=== PATIENT | female | born 1975 | race Caucasian/White ===

== ENCOUNTER → 2019-09-21 11:21 | Outpatient (CLI) | payer BC, SELFPAY ==
--- NOTE | ~2019-09-21 | MM_ITS ---
EXAMINATION: MM screening [facility] BI w janak HISTORY: Screening mammogram TECHNIQUE: Craniocaudal and mediolateral oblique 3-D tomosynthesis images were obtained and synthetic 2-D images were generated. CAD analysis was submitted and interpreted. COMPARISON: 09/15/2018, 09/05/2018, 11/11/2012 BREAST PARENCHYMAL COMPOSITION: The breasts are heterogeneously dense, which may obscure small masses . FINDINGS: There is no evidence of suspicious mass, calcification, or architectural distortion to sugg est malignancy in either breast. There has been no suspicious interval change. IMPRESSION: 1. No mammographic evidence of malignancy. 2. Recommend routine screening mammography in one year. BI-RADS Category 1: Negative Reviewed, dictated and finalized at location A. FRAME [employer]PER
== END ==
PROVIDERS: Visit Provider Nurse Practitioner Family
DX: Z12.31 Encounter for screening mammogram for malignant neoplasm of breast (principal)
CPT/HCPCS: 77063; 77067

== ENCOUNTER 2020-03-07 09:34 | Emergency (ER) | payer BC, SELFPAY ==
[2020-03-07 09:46] VITALS: BP 119/78; PULSE 73; RESP 16; TEMP 37.3; O2SAT 100
--- NOTE | 2020-03-07 10:04 | ED.GENADULT ---
HPI - General Adult General Chief complaint: Extremity Injury, Lower Stated complaint: Leg pain Time Seen by Provider: 03/07/20 09:50 Source: patient and RN notes reviewed Mode of arrival: ambulatory Limitations: no limitations History of Present Illness HPI narrative: 44-year-old female presents with complaints of left medial-posterior calf pain for the past 4 days. Aspirin (ES 500mg-2 tablets), last 03/06/20 with some relief. Elodia says she came in today to rule out a blood clot as instructed per her nurse friend. Can not recall any injuries. Say she rolled her ankle on February 03, 2020 otherwise denies any known injuries to LT leg. Denies radiation of pain. No numbness or tingling or bleeding. No swelling. No loss of mobility. Exacerbating factor consist of bearing weight to leg and palpation. Denies recent travel or long car rides. No history of DVT or PE. No chest pain or dyspnea. LMP 03/05/20l. Remains active. The patient reports she have not been diagnosed with COVID-19. The patient reports she is not waiting for the results of a COVID-19 lab test. The patient reports she do not have fever, chills, weakness, or fatigue. The patient reports she do not have a new or worsening cough or shortness of breath. Denies chest pain. The patient reports she do not have any rhinorrhea, congestion, sore throat, nausea, vomiting, abdominal pain, and diarrhea. Tolerating po intake well. Denies recent traveling. Denies concerns for COVID-19 or exposures been home with limited outdoor exposure except for essential household needs, work, and return home. At this time, patient is not suspected of having COVID-19. Some parts of this dictation were generated by voice recognition software and may contain typographical and/or grammatical inaccuracies. Related Data Home Medications Medication Instructions Recorded Confirmed levonorgestrel-ethinyl estrad 1 tablet PO DAILY 03/07/20 03/07/20 [Vienva] Allergies Allergy/AdvReac Type Severity Reaction Status Date / Time No Known Allergies Allergy Verified 03/07/20 09:50 Review of Systems Review of Systems: Narrative: CONSTITUTIONAL: Denies fever, chills, sweats. EYES: Denies visual changes, redness, discharge. ENT: Denies rhinorrhea, congestion, sore throat, otalgia. CARDIOVASCULAR: Denies chest pain, palpitations, edema. RESPIRATORY: Denies dyspnea, wheezing, cough. GASTROINTESTINAL: Denies abdominal pain, nausea, vomiting, diarrhea. GENITOURINARY: Denies dysuria, hematuria, abnormal discharge. SKIN: Denies rash or itching. MUSCULOSKELETAL: Denies acute back pain, joint pain, or myalgia. Complains of LT medial-posterior calf pain. NEUROLOGIC: Denies numbness or focal weakness. PSYCHIATRIC: Denies anxiety or depression. All other systems reviewed are negative, except as documented in HPI and below. [facility] Past Medical History Medical History (Updated 03/07/20 @ 14:34 by DAPHNE Mosely) Breast lump delivery delivered Surgical History Surgical History (Updated 03/07/20 @ 11:03 by DAPHNE Mosley) H/O section History of lumpectomy of left breast Family History Family History (Updated 03/07/20 @ 11:04 by DAPHNE Mosley) Father Acute myocardial infarction Mother Alive and well Social History Social History (Updated 03/07/20 @ 11:04 by DAPHNE Mosley) Smoking status: Never smoker Tobacco type: cigarettes Second hand tobacco smoke exposure: No Alcohol intake: current Substance use: never Living arrangements: with family Occupation/Education: occupation Gender identity (if verbalized by the patient): Female Sexual Orientation (if Verbalized by the Patient): Straight or Heterosexual Comments At time of signature, agree with nurse past medical, surgical, social, and family history. There is no relevant family history pertinent to the presenting complaint. Exam Narrative:
== END 2020-03-07 10:28 | disposition home or self-care (01) ==
PROVIDERS: Emergency Provider Nurse Practitioner Family
DX: S86.112A Strain of other muscle(s) and tendon(s) of posterior muscle group at lower leg level, left leg, initial encounter (principal); X58.XXXA Exposure to other specified factors, initial encounter
CPT/HCPCS: 99212; G0463

== ENCOUNTER → 2020-11-26 08:22 | Outpatient (CLI) | payer BC, SELFPAY ==
--- NOTE | ~2020-11-26 | US_ITS ---
EXAMINATION: US pelvic complete DATE: 11/26/2020 09:03 INDICATION: Vaginal spotting. Pelvic pain and bloating. Comparison:Ultrasound dated 11/22/2015 TECHNIQUE: Multiple transabdominal and endovaginal sonographic images of the pelvis performed. FINDINGS: The uterus measures 9.7 x 3.9 x 4.9 cm. The endometrial complex measures 3.4 mm. The right ovary measures 2.6 x 1.6 x 2 cm and the left ovary measures 2.9 x 2.2 x 2.1 cm. There are small follicles in each ovary. Normal doppler signal in both ovaries. There is no free fluid in the pelvis. There are no abnormal masses seen on either side. IMPRESSION: 1. Normal pelvic ultrasound. Reviewed, dictated and finalized at location B.
--- NOTE | ~2020-11-26 | MMUS_ITS ---
EXAMINATION: MM diagnostic [facility] BI w janak, US breast BI complete HISTORY: Lateral lumpy texture of both breasts on recent physical examination TECHNIQUE: ML, MLO and craniocaudal 3-D tomosynthesis images of both breasts were performed and synth etic 2-D images were generated. Bilateral rotated lateral cc views. CAD analysis was submitted and in terpreted. High resolution bilateral complete breast ultrasound was performed. COMPARISON: 09/21/2019, 09/05/2018 bilateral digital screening mammogram examinations 09/15/2018 diagnostic left digital mammogram BREAST PARENCHYMAL COMPOSITION: The breasts are extremely dense, which lowers the sensitivity of mamm ography. FINDINGS: MAMMOGRAPHIC FINDINGS: No suspicious mass is evident mammographically. No architectural distortion is noted. No malignant ca lcification, skin thickening or retraction is noted. However, given the clinical presentation of bilateral lumpy texture of the breasts on physical examin ation and the extremely dense stroma which may obscure masses, bilateral complete breast ultrasound e xamination was performed. ULTRASOUND: No suspicious mass or shadowing of either breast is evident. Right breast: 9:00 5 cm from nipple: 5 x 7.3 mm circumscribed hypoechoic lesion with through transmission, likely a small fibroadenoma. 6 month follow-up ultrasound examination is recommended. Left breast: 1:00 6 cm from nipple: 3.2 x 1.6 x 3.8 mm cyst 1:00 4 cm from nipple: 2.4 x 5.7 x 6.4 mm cyst 1:00 4 cm from nipple: 2.4 x 1.8 mm cyst IMPRESSION: 1. 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 6 month follow-up targeted right breast ultrasound examination is recommended. BI-RADS category 3, probably benign findings. Reviewed, dictated and finalized at location A. IMPRESSION: 1. 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 6 month follow-up targeted right breast ultrasound examination is recommende d. BI-RADS category 3, probably benign findings.
== END ==
PROVIDERS: Visit Provider Nurse Practitioner
DX: R92.8 Other abnormal and inconclusive findings on diagnostic imaging of breast (principal); N93.8 Other specified abnormal uterine and vaginal bleeding
CPT/HCPCS: 76641; 76856; 77062; 77066; G0279

== ENCOUNTER 2021-12-03 11:58 | Emergency (ER) | payer BC, SELFPAY ==
--- NOTE | ~2021-12-03 | XR_ITS ---
EXAMINATION: XR thoracic spine 3V DATE: 12/03/2021 12:34 INDICATION: Right neck and back pain. TECHNIQUE: 3 views of thoracic spine were obtained. COMPARISON: None. FINDINGS: There is 11 degrees levoscoliosis of upper thoracic spine. Vertebral body heights are artie l. There are endplate osteophytes at multiple levels. There is mildly decreased disc height at multip le levels in mid thoracic spine. IMPRESSION: 1. Mild thoracic spondylosis. 2. Upper thoracic levoscoliosis. Reviewed, dictated and finalized at location B.
--- NOTE | ~2021-12-03 | XR_ITS ---
EXAMINATION: XR cervical spine 4-5V DATE: 12/03/2021 12:34 INDICATION: Right neck pain. TECHNIQUE: 4 views of cervical spine were obtained. COMPARISON: None. FINDINGS: There is 9 degrees dextrocurvature of cervical spine. Vertebral body heights are normal. Th ere is mildly decreased disc height at C3-C4 and moderately decreased disc height at C5-C6. At C5-C6, there is severe bilateral uncovertebral joint osteoarthritis. At C7-T1, there is mild facet joint os teoarthritis. There is mild central canal stenosis at C5-C6. No prevertebral soft tissue swelling. IMPRESSION: 1. Moderate cervical spondylosis. Reviewed, dictated and finalized at location B.
[2021-12-03 12:07] VITALS: BP 113/75; PULSE 74; RESP 14; TEMP 36.9; O2SAT 100
[2021-12-03 12:13] VITALS: BP 113/75; PULSE 74; RESP 14; TEMP 36.9; O2SAT 100
--- NOTE | 2021-12-03 12:38 | ED.NECK ---
HPI - Neck Pain/Injury General Chief Complaint: Neck Pain/Injury Stated Complaint: Neck Pain Time Seen by Provider: 12/03/21 12:20 Source: patient, RN notes reviewed and old records reviewed Mode of arrival: ambulatory Limitations: no limitations History of Present Illness HPI Narrative: 46-year-old female who presents to [facility] care with complaints of posterior neck pain radiating down to mid back which started 1-1/2 weeks ago no known injury, pain increases with some movements. Patient reports that her arms are starting to get achy also denies any tingling or numbness to her hands or fingers. Patient describes her neck pain as 8/10 and achy, has been taking Ibuprofen with minimal decrease in her discomfort. Patient denies any fevers, chills or sweats or generalized body aches, has not had COVID immunizations or flu shot this season. MD complaint: neck pain Related Data Home Medications Medication Instructions Recorded Confirmed levonorgestrel-ethinyl estrad 1 tablet PO DAILY 03/07/20 12/03/21 [Vienva] Allergies Allergy/AdvReac Type Severity Reaction Status Date / Time No Known Allergies Allergy Verified 12/03/21 12:12 Review of Systems Review of Systems: CONSTITUTIONAL: Denies fever, chills, or sweats. EYES: Denies visual changes, redness, or discharge. ENT: Denies rhinorrhea, congestion, sore throat, or otalgia. CARDIOVASCULAR: Denies chest pain, palpitations, or edema. RESPIRATORY: Denies cough or dyspnea. GASTROINTESTINAL: Denies abdominal pain, nausea, vomiting, or diarrhea. GENITOURINARY: Denies dysuria or hematuria. SKIN: Denies rash or itching. MUSCULOSKELETAL: Positive for posterior neck pain radiating into mid back region,no joint pain, or myalgia. NEUROLOGIC: Denies headache, numbness, or weakness. PSYCHIATRIC: Denies anxiety or depression. All systems reviewed & are unremarkable except as noted in HPI and below PMFSH Past Medical History Medical History (Updated 12/04/21 @ 00:00 by Teddy Dasajan) Breast lump delivery delivered Surgical History Surgical History (Updated 03/07/20 @ 11:03 by DAPHNE Mosley) H/O section History of lumpectomy of left breast Family History Family History (Updated 03/07/20 @ 11:04 by DAPHNE Mosley) Father Acute myocardial infarction Mother Alive and well Social History Social History (Updated 03/07/20 @ 11:04 by DAPHNE Mosley) Smoking status: Never smoker Tobacco type: cigarettes Second hand tobacco smoke exposure: No Alcohol intake: current Substance use: never Gender identity (if verbalized by the patient): Female Sexual Orientation (if Verbalized by the Patient): Straight or Heterosexual Comments At time of signature, agree with nursing past medical, surgical, social and family history. There is no relevant family history pertinent to the presenting complaint Exam Narrative: GENERAL: Well-appearing, well-nourished, and in mild acute distress related to constant discomfort.. HEAD: Normocephalic, atraumatic. EYES: PERRLA and EOMI. ENT: Nares clear, no rhinorrhea or epistaxis. Mucous membranes moist.TM's normal with good light reflex, throat pink with no lesions or exudates or tonsil swelling. NECK: Supple. no lymphadenopathy CHEST: Clear to auscultation. No respiratory distress.SAO2 100% on room air. HEART: Regular rate and rhythm. No murmur heard. Normal peripheral pulses. ABDOMEN: Soft, nontender, nondistended, normal active bowel sounds. EXTREMITIES: Normal range of motion. No edema. Constant posterior neck pain radiating to mid thoracic back, reports that arms are beginning to be achy also. Patient has full ROM of neck and upper extremities but with discomfort, denies any tingling or numbness sensations in upper extremities, strong pulses to arms. SKIN: Warm, dry, no rash. NEURO: No focal deficits. Alert and oriented x3. Course Course Level of Care: Express Care Visit
== END 2021-12-03 13:10 | disposition home or self-care (01) ==
PROVIDERS: Emergency Provider Registered Nurse
DX: M47.812 Spondylosis without myelopathy or radiculopathy, cervical region (principal); M54.6 Pain in thoracic spine
CPT/HCPCS: 72050; 72072; 99213; G0463

== ENCOUNTER → 2022-01-02 13:54 | Outpatient (CLI) | payer BC, SELFPAY ==
--- NOTE | ~2022-01-02 | MMUS_ITS ---
EXAMINATION: MM screening [facility] BI w janak, US breast BI complete HISTORY: Screening mammogram TECHNIQUE: Craniocaudal and mediolateral oblique 3-D tomosynthesis images were obtained and synthetic 2-D images were generated. Bilateral rotated lateral CC views. CAD analysis was submitted and interp reted. COMPARISON: 11/26/2020 bilateral diagnostic and complete bilateral breast ultrasound 09/21/2019 bilateral screening mammogram diagnostic left mammogram 09/2018 bilateral screening mammogram BREAST PARENCHYMAL COMPOSITION: The breasts are heterogeneously dense, which may obscure small masses . MAMMOGRAM FINDINGS: Possible upper outer and lower-outer left breast masses are suggested. A six-month follow-up of a right breast 9:00 lesion 5 cm from the nipple was recommended on 11/26/2020 breast ultrasound examination. Heterogeneously dense stroma of both breasts may obscure masses in either breast. Bilateral complete ultrasound examination was performed. ULTRASOUND FINDINGS: Right breast: 9:00 5 cm from nipple: Irregular hypoechoic 5.1 x 6.1 x 4.9 mm solid lesion is noted. The margins are not completely circumscribed. There is mild posterior shadowing. Ultrasound-guided biopsy is recomme nded. 3:00 3 cm from nipple: 3.9 x 2.7 x 2.9 mm mildly irregular hypoechoic mass without internal vasculari ty or posterior shadowing 10:00 8 cm from nipple: 2.7 x 2.3 x 3.0 mm hypoechoic lesion with vessel noted at the margin of midpo rtion on color flow imaging, possibly a lymph node Left breast: 12:00 4 cm from nipple: 3.8 x 3.0 x 4.3 mm circumscribed hypoechoic lesion without internal vasculari ty or posterior features 4:00 3.5 cm from nipple: 4.7 x 2.3 x 4.1 mm parallel circumscribed hypoechoic lesion without internal vascularity or posterior shadowing 9:00 5 cm from nipple: Irregular antiparallel hypoechoic mass measuring up to 5 mm depth and 4.9 mm w idth, with prominent adjacent vascularity, with mild posterior shadowing. This area is suspicious. Ul trasound-guided biopsy is recommended. IMPRESSION: 1. 6.1 mm irregular incompletely circumscribed mildly shadowing mass of right breast 9:00 5 cm from n ipple; ultrasound-guided biopsy is recommended 2. 5 mm irregular hypoechoic mass of left breast with mild posterior shadowing at 9:00 5 cm from nipp le; ultrasound-guided biopsy is recommended. BI-RADS Category 4: Suspicious abnormality; biopsy should should be considered Reviewed, dictated and finalized at location A. IMPRESSION: 1. 6.1 mm irregular incompletely circumscribed mildly shadowing mass of right b reast 9:00 5 cm from nipple; ultrasound-guided biopsy is recommended 2. 5 mm irregular hypoechoic mass of left breast with mild posterior shadowing at 9:00 5 cm from nipple; ultrasound-guided biopsy is recommended. BI-RADS Category 4: Suspicious abnormality; biopsy should should be considered
== END ==
PROVIDERS: PCP Nurse Practitioner; Visit Provider Nurse Practitioner
DX: Z12.31 Encounter for screening mammogram for malignant neoplasm of breast (principal); D24.1 Benign neoplasm of right breast; R92.8 Other abnormal and inconclusive findings on diagnostic imaging of breast
CPT/HCPCS: 76641; 77063; 77067

== ENCOUNTER 2022-01-29 01:34 | Day surgery (SDC) | payer BC, SELFPAY ==
[2022-01-15 12:03] VITALS: BMI 23.0
[2022-01-29 10:21] VITALS: BP 115/63; PULSE 58; RESP 18; TEMP 36.9; O2SAT 100; BMI 22.8
[2022-01-29] MEDS: LACTATED RINGERS 1,000 ML 150 ML IV CONT (10:24)
--- NOTE | 2022-01-29 10:24 | P.PNAN_ITS ---
Anes - Initial Pre Proc Eval Procedure: Operation Date: 01/29/22 11:30 Proposed Procedures p Colonoscopy - Oren Frazier MD Date/Time: 01/29/22 10:24 Surgeon: Oren Frazier MD Pre Op Diagnosis: positive cologuard Patient Data Age: 46 Gender: F Height: 1.6 m Weight: 58.6 kg Last Vital Signs Temp 36.9 C 01/29/22 10:21 Pulse 58 L 01/29/22 10:21 Resp 18 01/29/22 10:21 BP 115/63 01/29/22 10:21 Pulse Ox 100 01/29/22 10:21 O2 Del Method Room Air 01/29/22 10:21 Allergies Allergy/AdvReac Type Severity Reaction Status Date / Time No Known Allergies Allergy Verified 01/29/22 10:20 Home Medications Medication Instructions Recorded Confirmed Type levonorgestrel-ethinyl estradiol 1 tablet PO DAILY 03/07/20 01/29/22 History 0.1 mg-20 mcg tablet (Vienva) sodium sul 1.479 gram-potas ch See Rx Instructions PO PER PKG DIR 01/07/22 01/29/22 Rx 0.188 gram-magnes sul 0.225 gram #24 tabs tablet (Sutab) Patient hx anesthesia problems: none Family hx anesthesia problems: none Results Review: All pre-operative results and documents have been reviewed as part of the pre- operative evaluation. [facility] Past Medical History Medical History Breast lump delivery delivered Surgical History Surgical History H/O section History of lumpectomy of left breast Family History Family History Father Acute myocardial infarction Mother Alive and well Social History Social History Smoking status: Never smoker Tobacco type: cigarettes Second hand tobacco smoke exposure: No Alcohol intake: current Substance use: never Substance use type: does not use Gender identity (if verbalized by the patient): Female Sexual Orientation (if Verbalized by the Patient): Straight or Heterosexual Anes - Eval Final PreProcedure Day of Procedure 01/29/22 10:24 Patient weight: normal Heart: regular rate and rhythm Lungs: clear to auscultation Airway: Mallampati scale class II Neurological: alert and oriented Last oral intake: >/= 8 hours ASA classification: I Emergent: no Anesthetic plan: proceed Anesthesia type and monitoring: general GIVS and standard monitoring Results Review: All pre-operative results and documents have been reviewed as part of the pre- operative evaluation. Informed Consent: The patient's anesthetic plan and its attendant risks and benefits were discussed with the patient/family/POA. Questions were solicited and answers provided to the satisfaction of the patient/family/POA.
--- NOTE | 2022-01-29 10:37 | PM.HPGS ---
History of Present Illness History of Present Illness Consent: Risks, benefits, and alternatives have been discussed and questions answered. Patient agrees to proceed with procedure. Chief complaint: positive cologuard Narrative: Elodia Britton is a 46 year old female Was referred for colon cancer screening. She recently performed a Cologuard test which was positive. Review of Systems Review of Systems: All systems reviewed & are unremarkable except as noted in HPI and below PMFSH Past Medical History Medical History Breast lump delivery delivered Surgical History Surgical History H/O section History of lumpectomy of left breast Family History Family History Father Acute myocardial infarction Mother Alive and well Social History Social History Smoking status: Never smoker Tobacco type: cigarettes Second hand tobacco smoke exposure: No Alcohol intake: current Substance use: never Substance use type: does not use Gender identity (if verbalized by the patient): Female Sexual Orientation (if Verbalized by the Patient): Straight or Heterosexual Meds Home Medications and Allergies Home Medications Medication Instructions Recorded Confirmed Type levonorgestrel-ethinyl estradiol 1 tablet PO DAILY 03/07/20 01/29/22 History 0.1 mg-20 mcg tablet (Vienva) sodium sul 1.479 gram-potas ch See Rx Instructions PO PER PKG DIR 01/07/22 01/29/22 Rx 0.188 gram-magnes sul 0.225 gram #24 tabs tablet (Sutab) Allergies Allergy/AdvReac Type Severity Reaction Status Date / Time No Known Allergies Allergy Verified 01/29/22 10:20 Vital Signs Vital Signs - 24 hr 01/29/22 10:21 Temperature 36.9 C Pulse Rate 58 L Respiratory Rate 18 Blood Pressure 115/63 Pulse Oximetry 100 Oxygen Delivery Room Air Exam Resp: Auscultation: clear to auscultation bilaterally Cardio: Rate: regular rate Rhythm: regular rhythm GI: GI Palp: Yes Soft to palpation and No Tenderness to palpation present (GI) Assessment and Plan Assessment and plan (1) Colon cancer screening: Code(s): Z12.11 - Encounter for screening for malignant neoplasm of colon Status: Acute Assessment and Plan: Colonoscopy with possible biopsy or polypectomy or cautery or injection of substances.
[2022-01-29 11:25] VITALS: BP 86/48; PULSE 79; RESP 19; O2SAT 100
[2022-01-29 11:35] VITALS: BP 89/54; PULSE 77; RESP 17; O2SAT 100
[2022-01-29 11:45] VITALS: BP 97/60; PULSE 71; RESP 16; O2SAT 97
== END 2022-01-29 11:57 | disposition home or self-care (01) ==
PROVIDERS: PCP Nurse Practitioner; Visit Provider Internal Medicine Gastroenterology
PROC: 0DJD8ZZ Inspection of Lower Intestinal Tract, Via Natural or Artificial Opening Endoscopic (ICD-10-PCS; CPT 45378; principal; 2022-01-29 11:30)
DX: Z12.11 Encounter for screening for malignant neoplasm of colon (principal); R19.5 Other fecal abnormalities
CPT/HCPCS: 45378; J2704; J7120